=== PATIENT | male | born 1990 | race Caucasian/White ===

== ENCOUNTER 2024-12-13 22:37 | Emergency (ER) | payer MEDICAID ==
[~2024-12-13] VITALS: Ht 165.1 cm; Wt 75.0 kg
[2024-12-13 22:50] VITALS: BP 123/81; PULSE 70; RESP 16; TEMP 97.9; O2SAT 99
[2024-12-14] MEDS ORDERED: IBUP-1492 PO (00:17)
[2024-12-14] MEDS: KETOROLAC TROMETHAMINE 60 MG/2 ML VIAL IM ONE (00:34)
== END 2024-12-14 01:51 | disposition home or self-care (01) ==
LOC: EMS 22:41
DX: M77.8 Other enthesopathies, not elsewhere classified (principal); M25.531 Pain in right wrist; M54.2 Cervicalgia; V89.2XXA Person injured in unspecified motor-vehicle accident, traffic, initial encounter; Y93.89 Activity, other specified; Y92.410 Unspecified street and highway as the place of occurrence of the external cause; Y99.8 Other external cause status
CPT/HCPCS: 99283; 73110; 96372; J1885